=== PATIENT | male | born 1995 | race Caucasian/White ===

== ENCOUNTER 2020-03-03 20:39 | Observation (INO) | payer MEDICARE, MEDICAID, SELFPAY ==
[2020-03-03 20:41] VITALS: BP 114/70; PULSE 114; RESP 16; TEMP 36.4; O2SAT 97
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
[2020-03-03] MEDS: LORazepam 1 MG TAB PO (21:08)
[2020-03-03 21:17] LABS: Abs Immature Grans 0.04 k/cumm (0.0-0.09); Absolute Basophil Count 0.02 k/cumm (0.0-0.2); Absolute Eosinophil Count 0.11 k/cumm (0.0-0.7); Absolute Lymphocyte Count 1.67 k/cumm (1.2-3.4); Basophils % 0.2; Eosinophils % 0.9; HCT 42.3 % (36.0-46.0); HGB 14.9 g/dL (12.0-15.5); Immature Grans % 0.3 %; Lymphocytes % 13.6; Mean Corp. HGB Concentration 35.2 g/dL (32.0-36.0); Mean Corpuscular Hemoglobin 30.6 pg (27.0-33.0); Mean Corpuscular Volume 86.9 fL (80-95); Mean Platelet Volume 8.9 fL (8.0-11.0); Monocytes % 5.9; Neutrophils % 79.1; Platelet Count 312 x1000/uL (130-400); RBC 4.87 m/cumm (4.00-5.20); RBC Distribution Width 12.2 % (11.7-14.6)
[2020-03-03 21:21] LABS: Absolute Monocyte Count 0.73 k/cumm (0.11-0.7); Absolute Neutrophil Count 9.73 k/cumm (1.2-6.7)
[2020-03-03 21:40] LABS: ALT 49 U/L (14-59); AST 71 U/L (15-37); Albumin 4.2 g/dL (3.4-5.0); Alkaline Phosphatase 49 U/L (46-116); Anion Gap 9.7 mmol/L (3-11); BUN 12 mg/dL (7-18); Bilirubin, Total 0.4 mg/dL (0.2-1.0); CO2 23.3 mmol/L (21.0-32.0); CREATININE 0.93 mg/dL (0.55-1.02); Calcium 8.9 mg/dL (8.5-10.1); Chloride 100 mmol/L (98-107); ETHANOL BLOOD 3.2 mg/dL (<3); Glucose 114 mg/dL (74-106); Potassium 3.7 mmol/L (3.5-5.1); Sodium 133 mmol/L (136-145); Total Protein 7.5 g/dL (6.4-8.2)
[2020-03-03 21:54] LABS: Salicylate < 2.8 mg/dL (2.8-20.0)
[2020-03-03 21:56] LABS: Acetaminophen < 2 ug/mL (10-30)
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
[2020-03-03] MEDS: Estradiol 1 MG TAB PO (22:57)
[2020-03-04] MEDS: Estradiol 1 MG TAB PO ×2 (01:21→09:26)
[2020-03-04] MEDS: LORazepam 1 MG TAB PO ×2 (01:22→20:26)
[2020-03-04] MEDS: diphenhydrAMINE 25 MG CAP 50 MG PO (01:47)
[2020-03-04] MEDS: Finasteride 5 MG TAB PO ×2 (01:48→09:26)
[2020-03-04] MEDS: Spironolactone 50 MG TAB 100 MG PO ×2 (01:48→09:26)
[2020-03-04 03:00] VITALS: BP 97/64; PULSE 90; RESP 19; TEMP 36.7; O2SAT 97
[2020-03-04 03:52] LABS: Bilirubin Negative (Negative); Blood Negative (Negative); Clarity Clear (Clear); Glucose Negative (Negative); Ketones Negative (Negative); Leukocyte Esterase Negative (Negative); Nitrite Negative (Negative); Urobilinogen 0.2 EU/dL (Up TO 0.2); pH 5.5 (5-8)
[2020-03-04 04:07] LABS: *AMPHETAMINES SCREEN URINE Negative (Negative); *BARBITURATES SCREEN URINE Negative (Negative); *BENZODIAZEPINES SCREEN URINE Negative (Negative); Cannabinoids THC Negative (Negative); Cocaine Screen,Urine Negative (Negative); METHADONE URINE SCREEN Negative (Negative); OPIATES URINE SCREEN Negative (Negative)
[2020-03-04 04:08] LABS: Tricyclic Antidepressants Negative (Negative)
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
[2020-03-04 08:53] VITALS: BP 110/72; PULSE 110; RESP 18; TEMP 37.1; O2SAT 98
[2020-03-04] MEDS: Gabapentin 100 MG CAP 200 MG PO ×2 (09:26→20:25)
[2020-03-04] MEDS: LORazepam 2 MG/ML VIAL IM (11:16)
[2020-03-04] MEDS: Haloperidol 5 MG/ML VIAL (11:52)
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
--- NOTE | 2020-03-04 13:14 | W.PM.PROGNOT ---
Date of Service Date of service: 03/04/20 Time of Service: 13:14 Assessment and Plan Assessment and plan (1) Major depression, chronic: Status: Chronic Assessment and plan: continue home medication. (2) Suicidal ideation: Status: Acute Assessment and plan: patient is being held on an EE, she will not cooperate. she is medically stable and cleared for placement. we are awaiting a bed. case management and mental health are following. (3) Combative behavior: Status: Acute Assessment and plan: received ativan 2 mg IM with no improvement in her behaviors. she required 4 point restraints and addition of haldol 5 mg IM. Subjective Subjective Interval history since last seen: patient uncooperative, spitting at staff, struggling, refusing to give up phone which is concern for safety as she has history of cutting. she required physical restraint to secure device and then refused to be cooperative, she states she was going to tip over the stretcher, that she would like us to give her acid and refused to cooperate. she has been medically stable. Exam Const Nutritional Appearance: average body habitus Orientation: alert and awake Limitations: behavioral limitations HENMT Head: normal to inspection, normocephalic and atraumatic Resp Effort & Inspection: normal respiratory effort and able to speak in complete sentences Skin Lesions: lesion noted Rashes: no rashes Neuro General: patient alert and patient awake Extrem General: normal to inspection, full ROM and no pedal edema Psych Appearance: disheveled Speech and Movement: speech and movement normal and agitated Mood: labile mood, angry and irritable mood Affect: hostile Attitude: belligerent Thought Content: homicidality and suicidality Insight: poor Judgment: poor Objective Objective Clinical Data: Abnormal lab results 03/03/20 03/03/20 Range/Units 21:09 21:09 WBC 12.30 H (4.4-10.8) k/cumm Absolute Neutrophils 9.73 H (1.2-6.7) k/cumm Absolute Monocytes 0.73 H (0.11-0.7) k/cumm Sodium 133 L (136-145) mmol/L Glucose 114 H (74-106) mg/dL AST 71 H (15-37) U/L Vital Signs Temperature 37.1 C 03/04/20 08:53 Temperature Source Tympanic 03/04/20 08:53 Pulse 110 H 03/04/20 08:53 Pulse Rhythm Regular 03/04/20 09:18 Respiratory Rate 18 03/04/20 08:53 Respiratory Effort Non-Labored 03/04/20 09:18 Respiratory Depth Normal 03/04/20 09:18 Respiratory Pattern Normal 03/04/20 09:18 Blood Pressure 110/72 03/04/20 08:53 Blood Pressure Position Sitting 03/03/20 20:41 Pulse Oximetry 98 03/04/20 08:53 Oxygen Delivery Method Room Air 03/04/20 08:53 Oxygen Flow Rate 0 03/04/20 08:53 Pain Level 0 03/04/20 08:53 Intake & Output 03/03/20 03/04/20 03/04/20 23:59 11:59 23:59 Weight 77.111 kg 77.111 kg Other: Urine Appearance Clear Laboratory Results WBC 12.30 k/cumm (4.4-10.8) H 03/03/20 21:09 RBC 4.87 m/cumm (4.00-5.20) 03/03/20 21:09 Hgb 14.9 g/dL (12.0-15.5) 03/03/20 21:09 Hct 42.3 % (36.0-46.0) 03/03/20 21:09 MCV 86.9 fL (80-95) 03/03/20 21:09 MCH 30.6 pg (27.0-33.0) 03/03/20 21:09 MCHC 35.2 g/dL (32.0-36.0) 03/03/20 21:09 RDW 12.2 % (11.7-14.6) 03/03/20 21:09 Plt Count 312 x1000/uL (130-400) 03/03/20 21:09 MPV 8.9 fL (8.0-11.0) 03/03/20 21:09 Immature Gran % 0.3 % 03/03/20 21:09 Neutrophils % 79.1 03/03/20 21:09 Lymphocytes % 13.6 03/03/20 21:09 Monocytes % 5.9 03/03/20 21:09 Eosinophils % 0.9 03/03/20 21:09 Basophils % 0.2 03/03/20 21:09 Absolute Neutrophils 9.73 k/cumm (1.2-6.7) H 03/03/20 21:09 Absolute Lymphocytes 1.67 k/cumm (1.2-3.4) 03/03/20 21:09 Absolute Monocytes 0.73 k/cumm (0.11-0.7) H 03/03/20 21:09 Absolute Eosinophils 0.11 k/cumm (0.0-0.7) 03/03/20 21:09 Absolute Basophils 0.02 k/cumm (0.0-0.2) 03/03/20 21:09 Sodium 133 mmol/L (136-145) L 03/03/20 21:09 Potassium 3.7 mmol/L (3.5-5.1) 03/03/20 21:09 Chloride 100 mmol/L (98-107) 03/03/20 21:09 Carbon Dioxide 23.3 mmol/L (21.0-32.0) 03/03/20 21:09 Anion Gap 9.7 mmol/L (3-11) 03/03/20 21:09 BUN 12 mg/dL (7-18) 03/03/20 21:09 Creatinine 0.93 mg/dL (0.55-1.02) 03/03/20 21:09 Estimated GFR/1.73 m2 >= 60.00 (mL/min/1.73m2) 03/03/20 21:09 Glucose 114 mg/dL (74-106) H 03/03/20 21:09 Calcium 8.9 mg/dL (8.5-10.1) 03/03/20 21:09 Total Bilirubin 0.4 mg/dL (0.2-1.0) 03/03/20 21:09 AST 71 U/L (15-37) H 03/03/20 21:09 ALT 49 U/L (14-59) 03/03/20 21:09 Alkaline Phosphatase 49 U/L (46-116) 03/03/20 21:09 Total Protein 7.5 g/dL (6.4-8.2) 03/03/20 21:09 Albumin 4.2 g/dL (3.4-5.0) 03/03/20 21:09 TSH Cancelled 03/04/20 12:00 Urine Color Yellow (Yellow) 03/04/20 03:09 Urine Clarity Clear (Clear) 03/04/20 03:09 Urine pH 5.5 (5-8) 03/04/20 03:09 Ur Specific [place] 1.010 (1.005-1.025) 03/04/20 03:09 Urine Protein Negative mg/dL (Negative) 03/04/20 03:09 Urine Ketones Negative mg/dL (Negative) 03/04/20 03:09 Urine Blood Negative (Negative) 03/04/20 03:09 Urine Nitrite Negative (Negative) 03/04/20 03:09 Urine Bilirubin Negative (Negative) 03/04/20 03:09 Urine Urobilinogen 0.2 EU/dL (Up TO 0.2) 03/04/20 03:09 Ur Leukocyte Esterase Negative (Negative) 03/04/20 03:09 Urine Glucose Negative mg/dL (Negative) 03/04/20 03:09 Salicylates < 2.8 mg/dL (2.8-20.0) 03/03/20 21:09 Urine Opiates Screen Negative (Negative) 03/04/20 03:09 Urine Methadone Screen Negative (Negative) 03/04/20 03:09 Acetaminophen < 2 ug/mL (10-30) 03/03/20 21:09 Ur Barbiturates Screen Negative (Negative) 03/04/20 03:09 Ur Tricyclics Screen Negative (Negative) 03/04/20 03:09 Ur Amphetamines Screen Negative (Negative) 03/04/20 03:09 U Benzodiazepines Scrn Negative (Negative) 03/04/20 03:09 Urine Cocaine Screen Negative (Negative) 03/04/20 03:09 Ur THC Screen Negative (Negative) 03/04/20 03:09 Ethyl Alcohol 3.2 mg/dL (<3) 03/03/20 21:09 COVID-19 PCR Cancelled 03/04/20 05:29 Nasopharyn COVID-19 PCR Cancelled 03/04/20 05:29 Ref Test Perform Site Cancelled 03/04/20 05:29
[2020-03-04 15:25] VITALS: BP 85/46; PULSE 75; RESP 19; TEMP 36.4; O2SAT 98
[2020-03-04 15:55] LABS: ALT 38 U/L (16-63); AST 41 U/L (15-37); Albumin 3.7 g/dL (3.4-5.0); Alkaline Phosphatase 45 U/L (46-116); Anion Gap 6.2 mmol/L (3-11); BUN 11 mg/dL (7-18); Bilirubin, Total 0.5 mg/dL (0.2-1.0); CO2 25.8 mmol/L (21.0-32.0); Calcium 8.7 mg/dL (8.5-10.1); Chloride 104 mmol/L (98-107); Glucose 90 mg/dL (74-106); Potassium 4.2 mmol/L (3.5-5.1); Sodium 136 mmol/L (136-145); Total Protein 6.6 g/dL (6.4-8.2)
[2020-03-04 16:07] LABS: HCT 39.1 % (40.0-50.0); HGB 13.5 g/dL (13.5-17.5); Mean Corp. HGB Concentration 34.5 g/dL (32.0-36.0); Mean Corpuscular Hemoglobin 30.4 pg (27.0-33.0); Mean Corpuscular Volume 88.1 fL (80-95); Mean Platelet Volume 9.4 fL (8.0-11.0); Platelet Count 275 x1000/uL (130-400); RBC 4.44 m/cumm (4.50-6.00); RBC Distribution Width 12.1 % (11.8-14.1); White Blood Cell Count 11.38 k/cumm (4.4-10.8)
--- NOTE | 2020-03-04 16:23 | NUR.NOTE ---
Nursing Note: Patient is remaining calm, she was offered her gabapentin. Patient refused twice
--- NOTE | 2020-03-04 19:02 | CMPROGNOTE_ITS ---
- If Service Date Differs Date of service: 03/04/20 Time of Service: 19:03 Care Management Progress Note A second certification interview was held with Genet PONCE from [facility] and Margret Contreras, a psychiatrist from [facility]. It was determined that the second certification would hold. Carmenza was minimally engaged during the interview and was unable to identify a plan for safety or a plan to reconnect with mental health services in the community. Carmenza will remain Involuntary for Inpatient Psychiatric stabilization at this time and efforts to obtain placement will continue.
[2020-03-04 23:22] LABS: COVID-19 RT-PCR UVMMC Result Negative (Negative)
[2020-03-05] MEDS: Haloperidol 5 MG/ML VIAL IM (04:16)
[2020-03-05] MEDS: LORazepam 2 MG/ML VIAL 1 MG IM (04:37)
[2020-03-05] MEDS: diphenhydrAMINE 50 MG/ML VIAL IM (04:37)
--- NOTE | 2020-03-05 06:18 | PGE_ITS ---
Date of Service Date of service: 03/05/20 Time of Service: 06:18 Assessment and Plan Assessment and plan (1) Combative behavior: Status: Acute Subjective Subjective Interval history since last seen: Patient tried to elope. in detaining her she became combative, kicking staff, knocking over furniture, etc. Placed temporarily in 4 pt restraints and given Haldol 5, Ativan 1 and Benadryl 50, all IM. Has since settled down, now out of restraints and during visit is resting quietly, with one word answers to questions. Objective Objective Clinical Data: Abnormal lab results 03/04/20 03/04/20 Range/Units 15:32 15:32 WBC 11.38 H (4.4-10.8) k/cumm RBC 4.44 L (4.50-6.00) m/cumm Hct 39.1 L (40.0-50.0) % AST 41 H (15-37) U/L Alkaline Phosphatase 45 L (46-116) U/L Vital Signs Temperature 36.4 C L 03/04/20 15:25 Temperature Source Tympanic 03/04/20 15:25 Pulse 75 03/04/20 15:25 Pulse Rhythm Regular 03/04/20 19:45 Respiratory Rate 19 03/04/20 15:25 Respiratory Effort Non-Labored 03/04/20 19:45 Respiratory Depth Normal 03/04/20 19:45 Respiratory Pattern Normal 03/04/20 19:45 Blood Pressure 85/46 L 03/04/20 15:25 Blood Pressure Position Sitting 03/03/20 20:41 Pulse Oximetry 98 03/04/20 15:25 Oxygen Delivery Method Room Air 03/04/20 15:25 Oxygen Flow Rate 0 03/04/20 15:25 Pain Level 0 03/04/20 15:25 Comment 03/04/20 15:25 Intake & Output 03/04/20 03/04/20 03/05/20 11:59 23:59 11:59 Intake Total 390 / 390 Balance 390 / 390 Weight 77.111 kg Intake: Oral 390 / 390 Other: Urine Appearance Clear Clear Voiding Methods Toilet Toilet Laboratory Results WBC 11.38 k/cumm (4.4-10.8) H 03/04/20 15:32 RBC 4.44 m/cumm (4.50-6.00) L 03/04/20 15:32 Hgb 13.5 g/dL (13.5-17.5) 03/04/20 15:32 Hct 39.1 % (40.0-50.0) L 03/04/20 15:32 MCV 88.1 fL (80-95) 03/04/20 15:32 MCH 30.4 pg (27.0-33.0) 03/04/20 15:32 MCHC 34.5 g/dL (32.0-36.0) 03/04/20 15:32 RDW 12.1 % (11.8-14.1) 03/04/20 15:32 Plt Count 275 x1000/uL (130-400) 03/04/20 15:32 MPV 9.4 fL (8.0-11.0) 03/04/20 15:32 Immature Gran % 0.3 % 03/03/20 21:09 Neutrophils % 79.1 03/03/20 21:09 Lymphocytes % 13.6 03/03/20 21:09 Monocytes % 5.9 03/03/20 21:09 Eosinophils % 0.9 03/03/20 21:09 Basophils % 0.2 03/03/20 21:09 Absolute Neutrophils 9.73 k/cumm (1.2-6.7) H 03/03/20 21:09 Absolute Lymphocytes 1.67 k/cumm (1.2-3.4) 03/03/20 21:09 Absolute Monocytes 0.73 k/cumm (0.11-0.7) H 03/03/20 21:09 Absolute Eosinophils 0.11 k/cumm (0.0-0.7) 03/03/20 21:09 Absolute Basophils 0.02 k/cumm (0.0-0.2) 03/03/20 21:09 Sodium 136 mmol/L (136-145) 03/04/20 15:32 Potassium 4.2 mmol/L (3.5-5.1) 03/04/20 15:32 Chloride 104 mmol/L (98-107) 03/04/20 15:32 Carbon Dioxide 25.8 mmol/L (21.0-32.0) 03/04/20 15:32 Anion Gap 6.2 mmol/L (3-11) 03/04/20 15:32 BUN 11 mg/dL (7-18) 03/04/20 15:32 Creatinine 0.90 mg/dL (0.70-1.30) 03/04/20 15:32 Estimated GFR/1.73 m2 >= 60.00 (mL/min/1.73m2) 03/04/20 15:32 Glucose 90 mg/dL (74-106) 03/04/20 15:32 Calcium 8.7 mg/dL (8.5-10.1) 03/04/20 15:32 Total Bilirubin 0.5 mg/dL (0.2-1.0) 03/04/20 15:32 AST 41 U/L (15-37) H 03/04/20 15:32 ALT 38 U/L (16-63) 03/04/20 15:32 Alkaline Phosphatase 45 U/L (46-116) L 03/04/20 15:32 Total Protein 6.6 g/dL (6.4-8.2) 03/04/20 15:32 Albumin 3.7 g/dL (3.4-5.0) 03/04/20 15:32 TSH Cancelled 03/04/20 15:32 Urine Color Yellow (Yellow) 03/04/20 03:09 Urine Clarity Clear (Clear) 03/04/20 03:09 Urine pH 5.5 (5-8) 03/04/20 03:09 Ur Specific [place] 1.010 (1.005-1.025) 03/04/20 03:09 Urine Protein Negative mg/dL (Negative) 03/04/20 03:09 Urine Ketones Negative mg/dL (Negative) 03/04/20 03:09 Urine Blood Negative (Negative) 03/04/20 03:09 Urine Nitrite Negative (Negative) 03/04/20 03:09 Urine Bilirubin Negative (Negative) 03/04/20 03:09 Urine Urobilinogen 0.2 EU/dL (Up TO 0.2) 03/04/20 03:09 Ur Leukocyte Esterase Negative (Negative) 03/04/20 03:09 Urine Glucose Negative mg/dL (Negative) 03/04/20 03:09 Salicylates < 2.8 mg/dL (2.8-20.0) 03/03/20 21:09 Urine Opiates Screen Negative (Negative) 03/04/20 03:09 Urine Methadone Screen Negative (Negative) 03/04/20 03:09 Acetaminophen < 2 ug/mL (10-30) 03/03/20 21:09 Ur Barbiturates Screen Negative (Negative) 03/04/20 03:09 Ur Tricyclics Screen Negative (Negative) 03/04/20 03:09 Ur Amphetamines Screen Negative (Negative) 03/04/20 03:09 U Benzodiazepines Scrn Negative (Negative) 03/04/20 03:09 Urine Cocaine Screen Negative (Negative) 03/04/20 03:09 Ur THC Screen Negative (Negative) 03/04/20 03:09 Ethyl Alcohol 3.2 mg/dL (<3) 03/03/20 21:09 COVID-19 PCR Cancelled 03/04/20 05:29 COVID-19 PCR Negative (Negative) 03/04/20 05:29 Nasopharyn COVID-19 PCR Cancelled 03/04/20 05:29 Nasopharyn COVID-19 PCR Not Applicable 03/04/20 05:29 Ref Test Perform Site Cancelled 03/04/20 05:29 Ref Test Perform Site [facility] lab 03/04/20 05:29
--- NOTE | 2020-03-05 07:23 | PHA.REVIEW ---
Pharmacy Admission Review - Admission Clinical Review (Last Reviewed 03/04/20 @ 07:04 by Heri Hoyos) Combative behavior (Acute) Suicidal ideation (Acute) tree nut Allergy (Unverified 03/03/20 20:46) Height 5 ft 11 in Weight 77.111 kg - Renal Dosing Renal Dosing: BUN 11 mg/dL (7-18) 03/04/20 15:32 Creatinine 0.90 mg/dL (0.70-1.30) 03/04/20 15:32 Medications needing adjustments: Reviewed (EST CrCl~ 133 mL/min Meds-OK) - Anticoagulation Anticoagulation: Hgb 13.5 g/dL (13.5-17.5) 03/04/20 15:32 Hct 39.1 % (40.0-50.0) L 03/04/20 15:32 Plt Count 275 x1000/uL (130-400) 03/04/20 15:32 Creatinine 0.90 mg/dL (0.70-1.30) 03/04/20 15:32 DVT Prohphylaxis: N/A Therapeutic Anticoagulation: N/A - Opiate Usage Evaluate Pain Scale/Pains Meds: N/A Scheduled Bowel Reg ordered if on Opiates?: Yes - Relevant Labs Sodium 136 mmol/L (136-145) 03/04/20 15:32 Potassium 4.2 mmol/L (3.5-5.1) 03/04/20 15:32 Chloride 104 mmol/L (98-107) 03/04/20 15:32 - DM Control DM Control: Glucose 90 mg/dL (74-106) 03/04/20 15:32 Insulin Dosing: N/A - Qtc Review If Elevated: N/A - Home Meds Home Med List reviewed: Reviewed (ONE MED ESTRADIOL -OK ORDERED) - Current meds Current Medication Order Review: Reviewed (SPIRONOLACTONE 100MG YARITZA STARKS)
--- NOTE | 2020-03-05 10:35 | W.PM.DS.N ---
Date of service: 03/05/20 Time of Service: 10:35 DS: Diagnosis Discharge Diagnosis (1) Combative behavior: Start date: 03/05/20 Start time: 10:35 Status: Acute Asessment and Plan: Admitted for SI after attempting to kill herself by sliting wrists. She has been EE and accepted at [facility] Discharge Plan Disposition Patient Disposition: [facility] Condition: Stable Discharge Details Chief Complaint: PsychEval Clinical Impression: Suicidal ideation Reason For Visit: SUICIDAL IDEATION Admit Date/Time: 03/04/20 01:53 Admit Provider: Heri Hoyos Attending Provider: Heri Hoyos Primary Care Provider: Kenzie Ceballos ED Provider: Jose Maria Medrano Hospital Course Hospital Course: This is a 24-year-old male patient with gender dysphoria taking immunizing medications through [facility] and wishing to be addressed as a female. She has a history of cutting and was lacerating her wrist on both sides with several lacerations being deep enough to bleed but superficial not requiring sutures. Both of these were wrapped and dry bandages in the ED. She was admitted to m/s until placement was secured. She was changed to EE when attempting to leave A. At this time she is sleeping after requiring both chemical and physical restraints overnight. She has been accepted at [facility] for further treatment. Home Meds and New Rx's Prescriptions: Continued estradiol 1 mg Tablet 1 mg PO DAILY RF: 0 Discharge Instructions Instructions: Help Prevent Suicide (DC), Suicide Prevention (DC) Additional Instructions: Discharge to [facility] Activity:: Activity as Tolerated Equipment/Supplies:: No Equipment Needed Diet:: Normal Diet Discharge Orders Discharge Orders: Discharge Order (Routine); Ordered 03/05/20 Ordered By: Sanjana Golden DS: Summary Status at Discharge Functional status at discharge: independent ambulation Overall status at discharge: patient is not back to baseline Mental Status: mental status grossly normal and other Speech and Movement: speech and movement normal Mood: other Affect: other Exam Narrative Exam Narrative: Patient is sleeping after being restrained. Did not want to wake given behavior overnight. She does not appear to have labored breathing or to Be in any acute distress. She lying on her side. No snoring involved. Does not appear restless. Psych Mental Status: mental status grossly normal and other Speech and Movement: speech and movement normal Mood: other Affect: other DS: Data Vitals/I&O Vitals and I&O: Vital Signs Temperature 36.4 C L 03/04/20 15:25 Temperature Source Tympanic 03/04/20 15:25 Pulse 75 03/04/20 15:25 Pulse Rhythm Regular 03/04/20 19:45 Respiratory Rate 19 03/04/20 15:25 Respiratory Effort Non-Labored 03/04/20 19:45 Respiratory Depth Normal 03/04/20 19:45 Respiratory Pattern Normal 03/04/20 19:45 Blood Pressure 85/46 L 03/04/20 15:25 Blood Pressure Position Sitting 03/03/20 20:41 Pulse Oximetry 98 03/04/20 15:25 Oxygen Delivery Method Room Air 03/04/20 15:25 Oxygen Flow Rate 0 03/04/20 15:25 Pain Level 0 03/04/20 15:25 Comment 03/04/20 15:25 Intake & Output 03/04/20 03/04/20 03/05/20 11:59 23:59 11:59 Intake Total 390 / 390 Balance 390 / 390 Weight 77.111 kg Intake: Oral 390 / 390 Other: Urine Appearance Clear Clear Voiding Methods Toilet Toilet Data Completed and Pending Labs on day of discharge: Labs from last 24 hours 03/04/20 03/04/20 03/04/20 15:32 15:32 15:32 WBC 11.38 H RBC 4.44 L Hgb 13.5 Hct 39.1 L MCV 88.1 MCH 30.4 MCHC 34.5 RDW 12.1 Plt Count 275 MPV 9.4 Sodium Potassium Chloride Carbon Dioxide Anion Gap BUN Creatinine Estimated GFR/1.73 m2 Glucose Calcium Total Bilirubin AST ALT Alkaline Phosphatase Total Protein Albumin TSH COVID-19 PCR Nasopharyn COVID-19 PCR Hep Bs Antigen Pending Hep Bs Antibody Pending Hep Bs Antibody, Quant Pending Hep B Core Total Ab Pending Hepatitis C Antibody Pending HIV 1&2 Ag/Ab, 4th Gen Pending Ref Test Perform Site 03/04/20 03/04/20 03/04/20 15:32 05:29 05:29 WBC RBC Hgb Hct MCV MCH MCHC RDW Plt Count MPV Sodium 136 Potassium 4.2 Chloride 104 Carbon Dioxide 25.8 Anion Gap 6.2 BUN 11 Creatinine 0.90 Estimated GFR/1.73 m2 >= 60.00 Glucose 90 Calcium 8.7 Total Bilirubin 0.5 AST 41 H ALT 38 Alkaline Phosphatase 45 L Total Protein 6.6 Albumin 3.7 TSH Cancelled COVID-19 PCR Negative Cancelled Nasopharyn COVID-19 PCR Not Applicable Cancelled Hep Bs Antigen Hep Bs Antibody Hep Bs Antibody, Quant Hep B Core Total Ab Hepatitis C Antibody HIV 1&2 Ag/Ab, 4th Gen Ref Test Perform Site [facility] lab Cancelled [facility] Social History Smoking/Tobacco Use Status: Never Alcohol Intake: current Alcohol Intake frequency: a few times a month Drug use: Daily Substance use type: other Current gender identity: female Do you feel safe at home: Yes
[2020-03-05 10:43] VITALS: BP 114/76; PULSE 112; RESP 16; TEMP 37.2; O2SAT 95
[2020-03-05] MEDS: Estradiol 1 MG TAB PO (11:01)
[2020-03-05] MEDS: Finasteride 5 MG TAB PO (11:01)
[2020-03-05] MEDS: Gabapentin 100 MG CAP 200 MG PO (11:01)
[2020-03-05] MEDS: Spironolactone 50 MG TAB 100 MG PO (11:02)
--- NOTE | 2020-03-05 16:12 | PDOC.CMDIS ---
- If Service Date Differs Date of service: 03/05/20 Time of Service: 16:12 LACE Index Scoring Tool - Questions: Length of Stay (in days): 1 Acuity (Admit via E.D.?): Yes E.D. Visits: 1 - Answers: Total Score: 5 Risk of Readmission: Low Risk Care Management Discharge Reason for Hospitalization: Suicidal ideation Discharge Plan: Carmenza will be transferred to [facility] for inpatient treatment and stabilization.Transport has been arranged through [facility] and restraints have been ordered for transport. Patient/Family Education Needs: Discharge plan, limitations, follow up plan, Ask Me Three. Services Needed at Discharge: Psychiatric Facility - MH Services (Omit if N/A) Current MH Services: Psychiatric Inp (transferred to [facility])
[2020-03-07 11:08] LABS: HIV-1/2 Ag & Ab Screen Negative (Negative)
[2020-03-07 13:17] LABS: HBs Antibody, Qual Negative (See Note); HBs Antibody, Quant 6.3 mIU/mL (See Note); Hepatitis B Core Antibody Negative (Negative); Hepatitis B surface Ag Negative (Negative); Hepatitis C Ab w Rflx HCV PCR Negative (Negative)
== END 2020-03-05 13:08 | disposition short-term general hospital (02) ==
LOC: ER 03-04 02:02 → MS 03-04 03:05
PROVIDERS: Internal Medicine; Admitting Provider Family Medicine; Emergency Provider Emergency Medicine; PCP Family Medicine; Visit Provider Internal Medicine
DX: F32.9 Major depressive disorder, single episode, unspecified (principal); R45.851 Suicidal ideations; F64.0 Transsexualism; S61.512A Laceration without foreign body of left wrist, initial encounter; S61.511A Laceration without foreign body of right wrist, initial encounter; X78.9XXA Intentional self-harm by unspecified sharp object, initial encounter; F91.8 Other conduct disorders; Z78.1 Physical restraint status
CPT/HCPCS: 36415; 80053; 80307; 85027; 86704; 86706; 86803; 87340; 87389; 99219; 99226; 99239; 99285; NC; U0003; 80320; 80329; 81003; 84443; 85025; 99217; 99283; G0378; J1200; J1630; J2060

== ENCOUNTER 2020-10-25 12:19 | Emergency (ER) | payer MEDICARE, MEDICAID, SELFPAY ==
[2020-10-25 12:31] VITALS: BP 113/65; PULSE 93; RESP 16; TEMP 36.5; O2SAT 98
--- NOTE | 2020-10-25 12:56 | ED.GENADUL_ITS ---
Discharge Plan Disposition Patient Disposition: HOME Condition: Stable Discharge Details Clinical Impression: Depression Primary Care Provider: Unknown,Unknown ED Provider: Hoang Harris Home Meds and New Rx's Prescriptions: Continued quetiapine 25 mg tablet 75 mg PO .QHS RF: 0 medroxyprogesterone 10 mg tablet 10 mg PO DAILY RF: 0 clonidine HCl 0.1 mg tablet 0.1 mg PO BID RF: 0 spironolactone 100 mg tablet 100 mg PO BID RF: 0 estradiol valerate 20 mg/mL oil IM .WEEKLY RF: 0 estradiol 2 mg tablet 3 mg PO DAILY RF: 0 estradiol 2 mg tablet 2 mg PO .QHS RF: 0 lorazepam 1 mg tablet RF: 0 lorazepam 1 mg tablet 1 mg PO DAILY RF: 0 levomefolate calcium 7.5 mg tablet 7.5 mg PO DAILY RF: 0 Discharge Instructions Instructions: Depression (ED) Additional Instructions: follow up with [facility] if you feel you are having worsening thoughts of self harm or others and are unable to contact [facility] return to the emergency department Medical Decision Making 25 yo with hx of reported depression who was [facility] and noticed other people laughing at her which made her upset and make vague statements to staff about wanting to harm herself and banged her head on a table. Denies loc or vomit and has no head pain now, small 1cm hematoma on frontal forehead normal motor and sensation clear speech eomi and normal pupils. She is currently calm and cooperative with stable gait and denies si/hi now and states she was just upset during the episode and is calm now. She meets criteria per juli to not image her head and suspect this was an emotional outburst, medically cleared to speak with mental health. No findings on exam to suggest underlying medical process such as infectious or endocrine abnormality for her symptoms earlier. pt seen by mental health and cleared to be d/c as they feel she is low risk and doesn't meet EE criteria which I agree with. They will follow up with her and discussed with pt importance of f/u with them and return precautions given, still denies si/hi now while waiting for a ride patient requested something for anxiety, seems calm but she states she feels anxious, will give oral 0.5mg lorazepam Differential Diagnosis Differential Diagnosis: depression, emotional outburst Lab Data Lab results reviewed: Yes I reviewed the patient's lab results. HPI General Mode of arrival: ambulatory . Date/Time Provider Initiated Documentation: 10/25/20 12:29 . Limitations to Documentation: no limitations . Information obtained by: patient . History of Present Illness 25 year old F presents to the emergency department with the chief complaint of depression, described as moderate, and it has been intermittent. No relieving factors improve symptom(s), No exacerbating factors reported . Patient did receive the following treatments prior to arrival, none Related Data Home Medications Medication Instructions Recorded Confirmed clonidine HCl 0.1 mg PO BID 10/25/20 10/25/20 estradiol 2 mg PO .QHS 10/25/20 10/25/20 estradiol 3 mg PO DAILY 10/25/20 10/25/20 estradiol valerate mg IM .WEEKLY 10/25/20 levomefolate calcium 7.5 mg PO DAILY 10/25/20 10/25/20 lorazepam 10/25/20 10/25/20 lorazepam 1 mg PO DAILY 10/25/20 10/25/20 medroxyprogesterone 10 mg PO DAILY 10/25/20 10/25/20 quetiapine 75 mg PO .QHS 10/25/20 10/25/20 spironolactone 100 mg PO BID 10/25/20 10/25/20 Allergies Allergy/AdvReac Type Severity Reaction Status Date / Time No Known Allergies Allergy Unverified 10/25/20 12:39 General Stated Complaint: PsychEval JOSE R: 2 Review of Systems All systems reviewed & are unremarkable except as noted in HPI and below Constitutional Constitutional: Denies chills, Denies fever(s) and Denies weakness Cardiovascular Cardiovascular: Denies chest pain and Denies dyspnea Respiratory Respiratory: Denies dyspnea Gastrointestinal Gastrointestinal: Denies abdominal pain, Denies nausea and Denies vomiting Musculoskeletal Musculoskeletal: Denies joint swelling Neurologic Neurologic: Denies weakness [facility] Social History Smoking/Tobacco Use Status: Never Smoking risk assessment performed?: Yes Alcohol Intake: never 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 Do you feel safe at home: Yes Do you feel safe in your relationship?: Yes Exam Const General: no acute distress Orientation: alert HENMT Head: no palpable skull fracture Ears: external ears normal General nose exam: external nose normal Mouth: moist mucous membranes Eyes General: appearance normal, both eyes and all related structures Neck Neck: normal visual inspection Resp Effort & Inspection: normal respiratory effort and able to speak in complete sentences Cardio Rate: regular rate Skin General skin exam: no rashes or lesions noted Neuro General: patient alert and patient oriented x3 Extrem General: normal to inspection Psych Mental Status: mental status grossly normal Course Vital Signs Vital signs: Vital Signs Temperature 36.5 C 10/25/20 12:31 Pulse 93 H 10/25/20 12:31 Respiratory Rate 16 10/25/20 12:31 Blood Pressure 113/65 10/25/20 12:31 Pulse Oximetry 98 10/25/20 12:31 Temperature 36.5 C 10/25/20 12:31 Temperature Source Skin 10/25/20 12:31 Pulse 93 H 10/25/20 12:31 Respiratory Rate 16 10/25/20 12:31 Respiratory Effort Non-Labored 10/25/20 12:31 Blood Pressure 113/65 10/25/20 12:31 Blood Pressure Position Sitting 10/25/20 12:31 Pulse Oximetry 98 10/25/20 12:31 Oxygen Delivery Method Room Air 10/25/20 12:31 Oxygen Flow Rate 0 10/25/20 12:31 Pain Level 1 10/25/20 12:31
[2020-10-25 14:09] LABS: Bilirubin Negative (Negative); Blood Negative (Negative); Clarity Clear (Clear); Glucose Negative (Negative); Ketones Negative (Negative); Leukocyte Esterase Negative (Negative); Nitrite Negative (Negative); Urobilinogen 0.2 EU/dL (Up TO 0.2); pH 6.5 (5-8)
[2020-10-25 14:13] LABS: *AMPHETAMINES SCREEN URINE Negative (Negative); *BARBITURATES SCREEN URINE Negative (Negative); *BENZODIAZEPINES SCREEN URINE Negative (Negative); Cannabinoids THC Negative (Negative); Cocaine Screen,Urine Negative (Negative); METHADONE URINE SCREEN Negative (Negative); OPIATES URINE SCREEN Negative (Negative)
[2020-10-25 14:15] LABS: Tricyclic Antidepressants Negative (Negative)
--- NOTE | 2020-10-25 14:18 | PDOC.MHCN_ITS ---
Date of service: 10/25/20 Time of Service: 13:30 Mental Health Crisis Note Presenting Issue How did you arrive at the ED and why did you come: Client arrived to ED via [facility] due to concerns of suicidal ideations Precipitating Factors Client denied SI/HI with this development writer. There is no evidence of delusions at this time Disposition BEHAVIOR: Client presented as guarded and very defensive EYE CONTACT: Client maintained minimal to no eye contact during this assessment. Client looked away most of the time. MOOD: Client presented as depressed AFFECT: Client presented with flat affect APPETITE: Client reported she has had intervals of no appetite and overeating at other times. SLEEP(trouble falling/staying asleep: Client reported trouble falling and/or staying asleep Plan Client did not meet EE criteria and is refusing to go for in-patient psychiatric treatment or hospital diversion program at this time. Client will be discharging home and has agreed to daily check in calls to [facility]. Signature Clinician's Name/Title: Desiree Cunningham Emergency Services Clinician
--- NOTE | 2020-10-25 14:31 | NUR.NOTE ---
Nursing Note: CM notified about need for RCT transport. Will arrange for this.
[2020-10-25] MEDS: LORazepam 0.5 MG TAB PO (14:50)
== END 2020-10-25 15:39 | disposition home or self-care (01) ==
PROVIDERS: Emergency Provider Emergency Medicine
DX: S00.83XA Contusion of other part of head, initial encounter (principal); W22.8XXA Striking against or struck by other objects, initial encounter; F41.8 Other specified anxiety disorders
CPT/HCPCS: 80307; 81025; 99285; 81003; 99283